=== PATIENT | female | born 1950 | race Caucasian/White ===

== ENCOUNTER 2019-10-01 08:59 | Outpatient (CLI) | payer MEDICARE, OTHER, SELFPAY ==
--- NOTE | 2019-10-01 09:03 | MM_ITS ---
WS: [id number] BILATERAL DIGITAL DIAGNOSTIC MAMMOGRAM MAMMOGRAPHY WITH CAD CLINICAL INFORMATION: BREAST LUMP HISTORY: History of bilateral breast nodules COMPARISON: Multiple prior outside examinations August 05, 2017, 2014, 2013. Prior ultrasound examin ations 06/18/2015 and 10/22/2013 TECHNIQUE: Bilateral CC, MLO, and ML views. FINDINGS: Left breast palpable abnormality The breasts are composed of heterogeneous fibroglandular density, which can limit the detection of sm all underlying mass lesions. Palpable marker posterior depth left breast with nodular density measuri ng 1.4 x 1.5 cm. This appears present in 2017 but is increased in size today. Ultrasound is pending. Otherwise Well-circumscribed nodular densities both breasts similar in appearance to 2017, 2014 2013 consistent with history of lipomas. ULTRASOUND BREAST LEFT TECHNIQUE: Ultrasound left breast focused area of concern. CLINICAL INFORMATION: BREAST LUMP FINDINGS: Ultrasound breast left 9:00 position 4 cm from the nipple in the area of palpable concern. Well-circu mscribed echogenic lipoma in the area of palpable abnormality measuring 4.6 x 1.2 x 2.5 CM. Adjacent smaller lipoma measuring 2.7 x 0.8 x 2.9 cm MM/[place] [id number] IMPRESSION: BI-RADS: 2-Benign FOLLOW UP: 1 Year Follow-up Recommend return to annual screening mammography.
--- NOTE | 2019-10-01 09:54 | US_ITS ---
WS: [id number] BILATERAL DIGITAL DIAGNOSTIC MAMMOGRAM MAMMOGRAPHY WITH CAD CLINICAL INFORMATION: BREAST LUMP HISTORY: History of bilateral breast nodules COMPARISON: Multiple prior outside examinations August 05, 2017, 2014, 2013. Prior ultrasound examin ations 06/18/2015 and 10/22/2013 TECHNIQUE: Bilateral CC, MLO, and ML views. FINDINGS: Left breast palpable abnormality The breasts are composed of heterogeneous fibroglandular density, which can limit the detection of sm all underlying mass lesions. Palpable marker posterior depth left breast with nodular density measuri ng 1.4 x 1.5 cm. This appears present in 2017 but is increased in size today. Ultrasound is pending. Otherwise Well-circumscribed nodular densities both breasts similar in appearance to 2017, 2014 2013 consistent with history of lipomas. ULTRASOUND BREAST LEFT TECHNIQUE: Ultrasound left breast focused area of concern. CLINICAL INFORMATION: BREAST LUMP FINDINGS: Ultrasound breast left 9:00 position 4 cm from the nipple in the area of palpable concern. Well-circu mscribed echogenic lipoma in the area of palpable abnormality measuring 4.6 x 1.2 x 2.5 CM. Adjacent smaller lipoma measuring 2.7 x 0.8 x 2.9 cm US/US breast LT limited* [id number] IMPRESSION: BI-RADS: 2-Benign FOLLOW UP: 1 Year Follow-up Recommend return to annual screening mammography.
== END 2019-10-01 09:00 | disposition home or self-care (01) ==
LOC: RADSHAW 08:59
PROVIDERS: Family Provider Family Medicine; PCP Family Medicine; Visit Provider Nurse Practitioner Family
DX: D17.79 Benign lipomatous neoplasm of other sites (principal); N63.20 Unspecified lump in the left breast, unspecified quadrant
CPT/HCPCS: 76642; 77066

== ENCOUNTER → 2020-06-24 10:50 | Outpatient (BNVA) | payer MEDICARE, OTHER, SELFPAY | PROVIDERS: Family Provider Family Medicine; PCP Family Medicine; Visit Provider Nurse Practitioner Family | DX: N39.0 Urinary tract infection, site not specified (principal); N39.46 Mixed incontinence | CPT/HCPCS: 81003 ==

== ENCOUNTER 2020-10-22 07:13 | Outpatient (CLI) | payer MEDICARE, OTHER, SELFPAY ==
[2020-10-22 07:22] VITALS: BMI 27.8
--- NOTE | 2020-10-22 07:58 | NMCV_ITS ---
NM vicenta perf SPECT r/s* [id number] Aura Michaud Age: 70 Gender: F : 1950 Exam Date: 10/22/2020 08:33 Ordering Phys: Jorge De Santiago M.D ([email or web address]) Technologist: EMELINA Erickson Exam Location: [facility] Indications: CHEST PAIN STRESS TEST Please see separate stress test report in [facility] for full findings IMAGE PROTOCOL Rest/Stress 1 Lexiscan Day Radiopharmaceutical Dose (mCi) Administration Site Administered by Rest: Tc-99m 10.8 IV EMELINA Tobin Sestamibi Stress:Tc-99m 32.1 IV EMELINA Tobin Sestamibi Rest: 22-Oct-2020 60 Discovery 630 Stress: 22-Oct-2020 30 Discovery 630 0.4mg Lexiscan. Images obtained in supine and prone position. SPECT RESULTS Technical Quality: Excellent Raw Data Analysis: Normal Image Corrections: No attenuation or motion correction applied Summed Stress Score: 0 Summed Rest Score: 0 Summed Difference Score: 0 PERFUSION FINDINGS SPECT images demonstrate homogeneous tracer distribution throughout the myocardium. FUNCTIONAL RESULTS (calculated via Gated SPECT) Stress Image LV EF (%): 87 Stress EDV (mL):52 TID: 0.9 Stress ESV (mL):7 FUNCTIONAL FINDINGS: There is normal left ventricular systolic function. IMPRESSIONS 1. Normal myocardial perfusion imaging with no evidence of ischemia 2. LV systolic function is normal Jorge De Santiago MD (Electronically Signed) Final Date: 25 October 2020 20:00 S
--- NOTE | 2020-10-22 07:58 | ECG_ITS ---
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 Interpretive Statements NAME OF STUDY: LEXISCAN SESTAMIBI STRESS TEST INDICATION: [Chest Pain] Procedure: At the baseline, the blood pressure was 125/71 mmHg, heart rate of 72 bpm. Electrocardiogram showed normal sinus rhythm, with normal ST-T waves. The Lexiscan was infused over a duration of 20 seconds. A total of 0.4 mg of Lexiscan was infused. The stress phase was continued for a total of 5 minutes. Heart rate at the end of stress phase was 92 bpm with a blood pressure of 129/72 mmHg. The EKG revealed sinus rhythm with no significant ST-T wave changes, occasional PVCs were noted. Sestamibi was injected 20 seconds after the Lexiscan infusion. Blood pressure at the end of recovery phase was 152/67 mmHg with a heart rate of 64 bpm. Conclusion: 1. Normal EKG response to Lexiscan infusion. 2. No Lexiscan induced chest pain or cardiac arrhythmia. 3. Normal blood pressure and heart rate response. 4. Sestamibi/sestamibi perfusion scan pending; see separate report. Electronically Signed On 10-26-2020 17:49:47 CDT by Jorge De Santiago M.D. [id number]
[2020-10-22] MEDS: regadenoson 0.4 Mg/5 ml Syringe IVP (09:16)
[2020-10-22 09:28] VITALS: BP 152/67; PULSE 90
== END 2020-10-22 07:14 | disposition home or self-care (01) ==
PROVIDERS: PCP Family Medicine; Visit Provider Internal Medicine
DX: R07.9 Chest pain, unspecified (principal)
CPT/HCPCS: 78452; 93017; A9500; J2785

== ENCOUNTER 2021-05-13 11:38 | Outpatient (CLI) | payer MEDICARE, OTHER, SELFPAY ==
[2021-05-13 12:14] LABS: Basophils # 0.1 10^3/uL (0.0-0.1); Basophils % 0.8 %; Eosinophils # 0.1 10^3/uL (0.0-0.8); Eosinophils % 1.8 %; Lymphocytes # 1.7 10^3/uL (0.8-4.8); Mean Corpuscular HGB Conc 34.1 g/dL (30.0-36.0); Mean Corpuscular Hemoglobin 29.8 pg (28.0-34.0); Mean Corpuscular Volume 87.3 fl (81-99); Mean Platelet Volume 10.6 fL (7.4-10.4); Monocytes # 0.4 10^3/uL (0.2-0.9); Monocytes % 6.8 %; Neutrophils # 3.68 10^3/uL (1.8-7.7); Neutrophils % 61.4 %; Nucleated Red Blood Cells % 0 %; Platelet Count 288 10^3/cmm (130-400); Red Blood Count 5.04 10^6/uL (4.1-5.3); Red Cell Distribution Width 12.7 % (12.1-15.1)
[2021-05-13 12:30] LABS: Anion Gap 15.2 (5-19); Blood Urea Nitrogen 20 mg/dL (8-23); Calcium 9.4 mg/dL (8.5-10.5); Carbon Dioxide 24 mmol/L (22-29); Chloride 103 mmol/L (98-107); Glucose 108 mg/dL (65-115); Osmolality Calculated 291 mOsm/kg (285-295); Potassium 3.2 mmol/L (3.5-5.1); Sodium 139 mmol/L (136-145)
[2021-05-13 12:50] LABS: Calcium 9.3 mg/dL (8.5-10.5)
[2021-05-13 12:57] LABS: Parathyroid Hormone 66.1 pg/mL (15-65)
[2021-05-13 13:28] LABS: Creatinine Urine, Random 246 mg/dL (28-217); Microalbum Creatinine Ratio Ur 8 mg/dL (0-20); Microalbumin Random Urine 2 ug/dL (0-20)
[2021-05-13 14:15] LABS: Bilirubin Urine Neg (Negative); Blood Urine Neg (Negative); Glucose Urine UA Norm (Normal); Ketones Urine Negative (Negative); Leukocyte Esterase Urine 1+ (Negative); Nitrate Urine Negative (Negative); Protein Urine Neg (Negative); Urine Appearance SL Hazy (CLEAR); Urine Color Yellow (Yellow); Urobilinogen Urine 1 mg/dL (Negative); pH Urine 6.5 (5-7)
[2021-05-13 14:17] LABS: RBC Urine RARE /hpf (0-2); WBC Urine 0-4 /hpf (0-5)
[2021-05-13 14:19] LABS: Add Urine Culture? No; Bacteria Urine TRACE /hpf; Mucus Urine 1+ /hpf; Squamous Epithelial Cell Urine 0-4 /hpf (0-5)
[2021-05-14 10:58] LABS: PROTEIN, TOTAL 6.9 g/dL (6.1-8.1)
[2021-05-14 13:38] LABS: KAPPA LIGHT CHAIN, FREE, SERUM 25.1 mg/L (3.3-19.4); KAPPA/LAMBDA LIGHT CHAINS FREE 1.15 (0.26-1.65); LAMBDA LIGHT CHAIN, FREE, SERU 21.9 mg/L (5.7-26.3)
[2021-05-15 10:53] LABS: ALBUMIN 4.1 g/dL (3.8-4.8); ALPHA 1 GLOBULIN 0.3 g/dL (0.2-0.3); ALPHA 2 GLOBULIN 0.7 g/dL (0.5-0.9); BETA 1 GLOBULIN 0.4 g/dL (0.4-0.6); BETA 2 GLOBULIN 0.4 g/dL (0.2-0.5)
== END 2021-05-13 11:39 | disposition home or self-care (01) ==
LOC: LAB 11:43
PROVIDERS: PCP Family Medicine; Visit Provider Registered Nurse
DX: N18.32 Chronic kidney disease, stage 3b (principal)
CPT/HCPCS: 36415; 80048; 81001; 82044; 82310; 83883; 83970; 84155; 84165; 85025

== ENCOUNTER → 2021-06-30 13:55 | Outpatient (BNVA) | payer MEDICARE, OTHER, SELFPAY | PROVIDERS: PCP Family Medicine; Visit Provider Nurse Practitioner Family | DX: N39.0 Urinary tract infection, site not specified (principal) | CPT/HCPCS: 81003 ==

== ENCOUNTER → 2021-07-23 13:07 | Outpatient (BNVA) | payer MEDICARE, OTHER, SELFPAY | PROVIDERS: PCP Family Medicine; Visit Provider Surgery | DX: Z20.822 Contact with and (suspected) exposure to COVID-19 (principal) | CPT/HCPCS: 87635 ==

== ENCOUNTER 2021-07-29 06:36 | Day surgery (SDC) | payer MEDICARE, OTHER, SELFPAY ==
[2021-07-21 11:30] VITALS: BMI 26.2
--- NOTE | 2021-07-29 07:03 | ANES.PREANE2 ---
Pre-Anesthetic Assessment Pre-Anesthetic Assessment: Height/Weight: Height 1.65 m Weight 71.668 kg Preop Diagnosis: upper gi symptoms Proposed Procedure: Operation Date: 07/29/21 08:00 Proposed Procedures p EGD/Colon 01288 R10.12(Not Applicable) - Levi Rutherford MD s Colonoscopy 02285 K52.9(Not Applicable) - Levi Rutherford MD Was Beta Jairo taken within 24 hours: N/A Was Clonidine taken within 24 hours: N/A Social: Social History: No alcohol and No tobacco Exam: Pre-Anes Outpt Exam: alert, oriented x 3, clear to auscultation bilaterally and regular rate & rhythm Airway: Submandibular: WNL Cervical ROM: WNL MP: 2 Dentition: False History/ROS: No significant complaints Pulmonary: Pulmonary: Asthma and Sleep apnea CV/HEM: CV/HEM: HTN : Comments: Recurrent UTI Hepatic: Hepatic: None reported GI: Comments: Diarrhea Metabolic: Metabolic: DM (Per patient easily hyper or hypoglycemic not taking insulin) Musc/skel: Musc/skel: None reported Neuropsych: Neuropsych: None reported Anesthetic Plan: ASA status: 3 (71 year old with chronic diarrhea recent weight loss attributed to new onset allergies, brittle diabetes, ELISEO, asthma, and HTN) Anesthesia: Anesthesia Evaluation, General and MAC Other: We discussed risk and benefits of MAC anesthesia including spectrum of anesthesia and goals including risk of recall of intraoperative stimuli such as sounds, discomfort, or even brief pain. Patient understands and agrees to proceed. Risk of > 500 ml blood loss (7ml/kg in children): No PFSH Anesthesia PFSH: Medical History Asthma Diabetes HTN (hypertension) ELISEO on CPAP Recurrent UTI Urinary incontinence, mixed Surgical History History of exploratory laparotomy abdominal mass S/P appendectomy S/P hysterectomy Status post colonoscopy Family History Mother , AGE 47 Stroke Father CHF (congestive heart failure) Alzheimer disease Social History Household members: spouse Marital status: Data Anesthesia Cardiac Studies: Sestamibi Stress Test (Cardiology) 10/22/20
[2021-07-29 07:10] VITALS: BP 150/90; PULSE 89; RESP 16; TEMP 36.3; O2SAT 97
[2021-07-29] MEDS: sodium chloride 0.9% 1,000 ML 30 ML IV (07:32)
--- NOTE | 2021-07-29 07:37 | ECG_ITS ---
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 Measurements Intervals [place] Rate: 67 P: 66 MI: 188 QRS: -26 QRSD: 94 T: 54 QT: 457 QTc: 484 Interpretive Statements SINUS RHYTHM BORDERLINE LEFT AXIS DEVIATION [QRS AXIS < -20] NONSPECIFIC T-WAVE ABNORMALITY PROLONGED QT INTERVAL No previous ECG available for comparison Electronically Signed On 07-30-2021 20:36:26 HYDROELECTRIC STATION OPERATOR by Hailey Bedoya M.D. [id number]
--- NOTE | 2021-07-29 07:45 | P.HP_ITS ---
Same Day Surgery H&P Indication for Procedure/HPI DATE OF PROCEDURE: July 29, 2021 CHIEF COMPLAINT/INDICATIONFOR SURGICAL PROCEDURE: egd/colonoscopy PREOP DIAGNOSIS: upper gi symptoms PLANNED PROCEDRUE: Operation Date: 07/29/21 08:00 Proposed Procedures p EGD/Colon 37521 R10.12(Not Applicable) - Levi Rutherford MD s Colonoscopy 50886 K52.9(Not Applicable) - Levi Rutherford MD Medications/Allergies* Home Medications Medication Instructions Recorded Confirmed Type fexofenadine 180 mg tablet 180 mg PO DAILY 12/19/19 07/29/21 History omega-3 fatty acids 1,000 mg 1,000 mg PO DAILY 12/19/19 07/29/21 History capsule ascorbate calcium (vitamin C) 500 1,000 mg PO DAILY tab 06/24/20 07/29/21 History mg tablet aspirin 81 mg tablet,delayed 81 mg PO DAILY 06/24/20 07/29/21 History release gnilovh-vgebcqnfm-opyiln-zinc 1 tab PO DAILY 06/24/20 07/29/21 History tablet multivitamin 1 tab PO DAILY 06/24/20 07/29/21 History vitamin E (dl, acetate) 45 mg (100 100 unit PO DAILY 06/24/20 07/29/21 History unit) capsule cholecalciferol (vitamin D3) 125 125 mcg PO DAILY 08/06/20 07/29/21 History mcg (5,000 unit) tablet potassium chloride 10 mEq 10 meq PO DAILY 06/22/21 07/29/21 History capsule,extended release vitamin B complex 1 tab PO DAILY 06/22/21 07/29/21 History Allergies/Adverse Reactions Allergy/AdvReac Type Severity Reaction Status Date / Time benazepril Allergy Unknown Unknown Verified 07/29/21 07:11 citalopram [From Celexa] Allergy Unknown Unknown Verified 07/29/21 07:11 levofloxacin Allergy Unknown Unknown Verified 07/29/21 07:11 prednisone Allergy Unknown Unknown Verified 07/29/21 07:11 tetanus toxoid, adsorbed Allergy Unknown Unknown Verified 07/29/21 07:11 Current Medications: Generic Name Dose Route Start Last Admin Trade Name Freq PRN Reason Stop Dose Admin Sodium Chloride 1,000 mls @ 30 mls/hr 07/29/21 06:45 07/29/21 07:32 Sodium Chloride 0.9% IV 07/30/21 06:44 30 mls/hr .Q24H ELANA Administration Pertinent History/Comorbid Conditions* Medical History (Updated 06/29/21 @ 16:24 by Juan Miguel Goldberg MD) Asthma Diabetes HTN (hypertension) ELISEO on CPAP Recurrent UTI Urinary incontinence, mixed Surgical History (Updated 06/22/21 @ 10:37 by Levi Rutherford MD) History of exploratory laparotomy abdominal mass S/P appendectomy S/P hysterectomy Status post colonoscopy Family History (Updated 12/19/19 @ 09:53 by Ebony Mahoney RN) Mother, AGE 47 CHF (congestive heart failure) Father Alzheimer disease Father Stroke Mother Social History Household members: spouse Marital status: Pertinent Exam Findings alert, oriented x 3 and regular rate & rhythm Recommendations Surgery/Procedure today Coding Level of Care Code Acute Reversing Mill Roller for Ebony Ruby
[2021-07-29 08:18] VITALS: BP 115/70; PULSE 73; RESP 16; TEMP 36.1; O2SAT 98
[2021-07-29 08:30] VITALS: BP 130/76; PULSE 83; RESP 18; O2SAT 100
--- NOTE | 2021-07-29 10:42 | ANE.PACU2 ---
Inpatient post-anesthesia follow up: Airway intact: Yes Vital signs: Temperature 97.0 F Pulse Rate 83 Respiratory Rate 18 Blood Pressure 130/76 Pulse Oximetry 100 Oxygen Delivery Me thod Room Air Oxygen Flow Rate 3 Fraction of Inspir ed Oxygen Hydration adequate: No Nausea and vomiting: No Pain level: 1 Mental status: Baseline Additional Comments: EMR review
== END 2021-07-29 08:59 | disposition home or self-care (01) ==
PROVIDERS: PCP Family Medicine; Visit Provider Surgery
PROC: 0DJ08ZZ Inspection of Upper Intestinal Tract, Via Natural or Artificial Opening Endoscopic (ICD-10-PCS; CPT 43235; principal; 2021-07-29 08:00)
PROC: 0DJD8ZZ Inspection of Lower Intestinal Tract, Via Natural or Artificial Opening Endoscopic (ICD-10-PCS; CPT 45378; 2021-07-29 08:00)
DX: R10.12 Left upper quadrant pain (principal); K52.9 Noninfective gastroenteritis and colitis, unspecified; K29.70 Gastritis, unspecified, without bleeding; K57.30 Diverticulosis of large intestine without perforation or abscess without bleeding; K64.8 Other hemorrhoids; G47.30 Sleep apnea, unspecified; E11.9 Type 2 diabetes mellitus without complications; G47.33 Obstructive sleep apnea (adult) (pediatric); I10 Essential (primary) hypertension; Z79.82 Long term (current) use of aspirin
CPT/HCPCS: 43239; 45380; 82274; 83630; 87493; 87506; 88305; 93005; 96360; J2704; J7030

== ENCOUNTER → 2022-02-15 15:06 | Outpatient (BNVA) | payer MEDICARE, OTHER, SELFPAY | PROVIDERS: PCP Family Medicine; Visit Provider Internal Medicine | DX: I10 Essential (primary) hypertension (principal); R07.9 Chest pain, unspecified; E11.9 Type 2 diabetes mellitus without complications; Z79.84 Long term (current) use of oral hypoglycemic drugs | CPT/HCPCS: 99213; 99214 ==

== ENCOUNTER → 2022-02-27 09:51 | Outpatient (BNVA) | payer MEDICARE, OTHER, SELFPAY | PROVIDERS: PCP Family Medicine; Visit Provider Emergency Medicine | DX: J02.9 Acute pharyngitis, unspecified (principal) | CPT/HCPCS: 87071; 87426; 87880 ==

== ENCOUNTER 2022-06-22 10:17 | Outpatient (CLI) | payer MEDICARE, OTHER, SELFPAY ==
--- NOTE | 2022-06-22 10:24 | MM_ITS ---
WS: [id number] BILATERAL SCREENING DIGITAL TOMOSYNTHESIS MAMMOGRAM WITH CAD HISTORY: SCREEN COMPARISON: 10/01/2019, 08/05/2017 and 06/18/2015 Bilateral CC and MLO views with tomosynthesis and synthetic mammography submitted. Computer aided det ection analyzed. Breast composition: The breasts are heterogeneously dense, which may obscure small masses. No suspici ous masses, microcalcifications or architectural distortion. Numerous bilateral breast masses are kam ntified. Majority of these masses have decreased in size or resolved since 2019. The largest is in th e posterior LEFT breast just inferior to the nipple near 6:00 measuring 16 mm. This mass is along the posterior chest wall and not seen on the CC projection. No suspicious calcifications. MM/[place] [id number] IMPRESSION: BI-RADS: 2-Benign FOLLOW UP: 1 Year Follow-up Numerous bilateral breast masses reidentified. No adverse change. If the patien t has new palpable areas these can be reevaluated with ultrasound. Mammographic ally and by history there has been no adverse change.
== END 2022-06-22 10:18 | disposition home or self-care (01) ==
LOC: RAD 10:18
PROVIDERS: PCP Family Medicine; Visit Provider Nurse Practitioner Family
DX: Z12.31 Encounter for screening mammogram for malignant neoplasm of breast (principal)
CPT/HCPCS: 77063; 77067

== ENCOUNTER → 2022-07-08 13:06 | Outpatient (BNVA) | payer MEDICARE, OTHER, SELFPAY | PROVIDERS: PCP Family Medicine; Visit Provider Podiatrist Foot & Ankle Surgery | DX: E11.8 Type 2 diabetes mellitus with unspecified complications (principal); E11.42 Type 2 diabetes mellitus with diabetic polyneuropathy; M20.41 Other hammer toe(s) (acquired), right foot; M20.42 Other hammer toe(s) (acquired), left foot; L60.3 Nail dystrophy | CPT/HCPCS: 11721 ==

== ENCOUNTER → 2022-11-15 14:35 | Outpatient (BNVA) | payer MEDICARE, OTHER, SELFPAY | PROVIDERS: PCP Family Medicine; Visit Provider Internal Medicine | DX: I10 Essential (primary) hypertension (principal); E11.9 Type 2 diabetes mellitus without complications; G47.33 Obstructive sleep apnea (adult) (pediatric); Z99.89 Dependence on other enabling machines and devices | CPT/HCPCS: 99214 ==

== ENCOUNTER → 2022-11-30 07:54 | Outpatient (BNVA) | payer MEDICARE, OTHER, SELFPAY | PROVIDERS: PCP Family Medicine; Visit Provider Podiatrist Foot & Ankle Surgery | DX: E11.42 Type 2 diabetes mellitus with diabetic polyneuropathy (principal); L60.3 Nail dystrophy; M20.41 Other hammer toe(s) (acquired), right foot; M20.42 Other hammer toe(s) (acquired), left foot | CPT/HCPCS: 11721 ==

== ENCOUNTER → 2023-03-15 13:16 | Outpatient (BNVA) | payer MEDICARE, OTHER, SELFPAY | PROVIDERS: PCP Family Medicine; Visit Provider Podiatrist Foot & Ankle Surgery | DX: E11.42 Type 2 diabetes mellitus with diabetic polyneuropathy; L60.3 Nail dystrophy; M20.41 Other hammer toe(s) (acquired), right foot; M20.42 Other hammer toe(s) (acquired), left foot; S90.31XA Contusion of right foot, initial encounter; W23.0XXA Caught, crushed, jammed, or pinched between moving objects, initial encounter | CPT/HCPCS: 11721; 73610; 99213 ==

== ENCOUNTER → 2023-06-14 11:27 | Outpatient (BNVA) | payer MEDICARE, OTHER, SELFPAY | PROVIDERS: PCP Family Medicine; Visit Provider Podiatrist Foot & Ankle Surgery | DX: E11.42 Type 2 diabetes mellitus with diabetic polyneuropathy (principal); M20.41 Other hammer toe(s) (acquired), right foot; M20.42 Other hammer toe(s) (acquired), left foot; L60.3 Nail dystrophy | CPT/HCPCS: 11721 ==

== ENCOUNTER → 2023-09-02 09:31 | Outpatient (BNVA) | payer MEDICARE, OTHER, SELFPAY | PROVIDERS: PCP Family Medicine; Visit Provider Internal Medicine Cardiovascular Disease | DX: R07.9 Chest pain, unspecified (principal); I10 Essential (primary) hypertension; E11.9 Type 2 diabetes mellitus without complications; R94.31 Abnormal electrocardiogram [ECG] [EKG] | CPT/HCPCS: 93005; 99213 ==

== ENCOUNTER → 2023-09-21 13:17 | Outpatient (BNVA) | payer MEDICARE, OTHER, SELFPAY | PROVIDERS: PCP Family Medicine; Visit Provider Podiatrist Foot & Ankle Surgery | DX: E11.42 Type 2 diabetes mellitus with diabetic polyneuropathy (principal); M20.41 Other hammer toe(s) (acquired), right foot; M20.42 Other hammer toe(s) (acquired), left foot; L60.3 Nail dystrophy | CPT/HCPCS: 11721 ==

== ENCOUNTER → 2023-12-21 14:04 | Outpatient (BNVA) | payer MEDICARE, OTHER, SELFPAY | PROVIDERS: PCP Family Medicine; Visit Provider Podiatrist Foot & Ankle Surgery | DX: E11.42 Type 2 diabetes mellitus with diabetic polyneuropathy (principal); M20.41 Other hammer toe(s) (acquired), right foot; M20.42 Other hammer toe(s) (acquired), left foot; L60.3 Nail dystrophy | CPT/HCPCS: 11721 ==

== ENCOUNTER → 2024-01-09 15:53 | Outpatient (BNVA) | payer MEDICARE, OTHER, SELFPAY | PROVIDERS: PCP Family Medicine; Visit Provider Nurse Practitioner Family | DX: R30.0 Dysuria (principal) | CPT/HCPCS: 81000 ==

== ENCOUNTER → 2024-01-24 12:41 | Outpatient (BNVA) | payer MEDICARE, OTHER, SELFPAY | PROVIDERS: PCP Family Medicine; Visit Provider Internal Medicine Cardiovascular Disease | DX: I10 Essential (primary) hypertension (principal); E11.9 Type 2 diabetes mellitus without complications; G47.33 Obstructive sleep apnea (adult) (pediatric); Z99.89 Dependence on other enabling machines and devices | CPT/HCPCS: 99213 ==

== ENCOUNTER → 2024-04-04 11:00 | Outpatient (BNVA) | payer MEDICARE, OTHER, SELFPAY | PROVIDERS: PCP Family Medicine; Visit Provider Podiatrist Foot & Ankle Surgery | DX: E11.42 Type 2 diabetes mellitus with diabetic polyneuropathy (principal); L60.3 Nail dystrophy; I73.9 Peripheral vascular disease, unspecified | CPT/HCPCS: 11721 ==

== ENCOUNTER 2024-04-19 14:25 | Outpatient (CLI) | payer MEDICARE, OTHER, SELFPAY ==
--- NOTE | 2024-04-19 14:28 | CT_ITS ---
WS: [id number] CT NECK TECHNIQUE: Contrast-enhanced CT of the neck with coronal and sagittal reformatted images. CLINICAL INFORMATION: OTALGIA, UNSPECIFIED EAR COMPARISON: None. DLP: 144.[address] scans at [facility] use at least one of these dose optimization techniques: automated e xposure control; mA and/or kV adjustment per patient size (includes targeted exams where dose is matc hed to clinical indication); or iterative reconstruction. FINDINGS: Partially visualized paranasal sinuses are well aerated. Mastoid air cells are well aerated. Normal p osterior nasopharynx. Normal parapharyngeal fat. Parotid glands are normal. Submandibular glands are normal. Tiny 3 mm RIGHT thyroid nodule measuring 4 mm. Mild aortic arch calcification. Lung apices are well aerated. Retropharyngeal course to the RIGHT cervical ICA. Mild LEFT carotid bul b calcification. No cervical lymphadenopathy. CT/CT neck w con* [id number] IMPRESSION: 1. No evidence of supraglottic or glottic mass. 2. No cervical lymphadenopathy. 3. Mastoid air cells are well aerated. Normal posterior nasopharynx. 4. 4 mm small RIGHT thyroid nodule.
[2024-04-19 15:39] LABS: Blood Urea Nitrogen 18 mg/dL (8-23)
[2024-04-19] MEDS: iohexol 350 mg/mL 500 mL Btl (per mL) IV (15:41)
== END 2024-04-19 14:26 | disposition home or self-care (01) ==
LOC: RAD 14:25
PROVIDERS: Radiology Diagnostic Radiology; PCP Family Medicine; Visit Provider Specialist
DX: H92.09 Otalgia, unspecified ear (principal); E04.1 Nontoxic single thyroid nodule
CPT/HCPCS: 70491; 82565; 84520

== ENCOUNTER → 2024-07-04 14:15 | Outpatient (BNVA) | payer MEDICARE, OTHER, SELFPAY | PROVIDERS: PCP Family Medicine; Visit Provider Podiatrist Foot & Ankle Surgery | DX: E11.8 Type 2 diabetes mellitus with unspecified complications (principal); E11.42 Type 2 diabetes mellitus with diabetic polyneuropathy; L60.3 Nail dystrophy; I73.9 Peripheral vascular disease, unspecified | CPT/HCPCS: 11721 ==

== ENCOUNTER → 2024-08-15 13:02 | Outpatient (BNVA) | payer MEDICARE, OTHER, SELFPAY | PROVIDERS: PCP Family Medicine; Visit Provider Nurse Practitioner Family | DX: I10 Essential (primary) hypertension (principal); Z91.014 Allergy to mammalian meats; E11.9 Type 2 diabetes mellitus without complications | CPT/HCPCS: 99214 ==

== ENCOUNTER → 2024-10-03 14:27 | Outpatient (BNVA) | payer MEDICARE, OTHER, SELFPAY | PROVIDERS: PCP Family Medicine; Visit Provider Podiatrist Foot & Ankle Surgery | DX: E11.42 Type 2 diabetes mellitus with diabetic polyneuropathy (principal); L60.3 Nail dystrophy; E11.8 Type 2 diabetes mellitus with unspecified complications; I73.9 Peripheral vascular disease, unspecified | CPT/HCPCS: 11721 ==

== ENCOUNTER → 2025-03-18 13:21 | Outpatient (BNVA) | payer MEDICARE, OTHER, SELFPAY | PROVIDERS: PCP Family Medicine; Visit Provider Internal Medicine | DX: I10 Essential (primary) hypertension (principal) | CPT/HCPCS: 99214 ==

== ENCOUNTER → 2025-03-26 14:32 | Outpatient (BNVA) | payer MEDICARE, OTHER, SELFPAY | PROVIDERS: PCP Family Medicine; Visit Provider Podiatrist Foot & Ankle Surgery | DX: E11.42 Type 2 diabetes mellitus with diabetic polyneuropathy (principal); L60.3 Nail dystrophy; E11.8 Type 2 diabetes mellitus with unspecified complications; I73.9 Peripheral vascular disease, unspecified; M20.41 Other hammer toe(s) (acquired), right foot; M20.42 Other hammer toe(s) (acquired), left foot; S90.31XA Contusion of right foot, initial encounter; X58.XXXA Exposure to other specified factors, initial encounter | CPT/HCPCS: 11721; 73630; 99213 ==

== ENCOUNTER → 2025-07-02 13:46 | Outpatient (BNVA) | payer MEDICARE, OTHER, SELFPAY | PROVIDERS: PCP Family Medicine; Visit Provider Podiatrist Foot & Ankle Surgery | DX: E11.42 Type 2 diabetes mellitus with diabetic polyneuropathy (principal); L60.3 Nail dystrophy; E11.8 Type 2 diabetes mellitus with unspecified complications; I73.9 Peripheral vascular disease, unspecified; M20.41 Other hammer toe(s) (acquired), right foot; M20.42 Other hammer toe(s) (acquired), left foot | CPT/HCPCS: 11721 ==